=== PATIENT | female | born 2000 | race American Indian/Alaskan Native ===

== ENCOUNTER 2021-04-27 14:39 | Outpatient (CLI) | payer SELFPAY ==
[2021-04-27 16:01] VITALS: BP 105/63
[2021-04-27] MEDS ORDERED: LACTATED RINGERS 500 ML IV ONE (17:00)
[2021-04-27 17:03] LABS: Bacteria,Urine 1+ /HPF (Negative); Bilirubin,Urine NEG (Negative); Blood,Urine NEG (Negative); Color,Urine Yellow (Yellow); Mucus,Urine FEW /HPF; Protein,Urine <15 mg/dL mg/dL (Negative)
== END 2021-04-27 19:57 | disposition home or self-care (01) ==
LOC: TRG 14:39 → APU 15:52 → TRG 19:57
PROVIDERS: ATTEND Obstetrics & Gynecology
DX: O62.9 Abnormality of forces of labor, unspecified (principal); O26.893 Other specified pregnancy related conditions, third trimester; R10.9 Unspecified abdominal pain; R07.9 Chest pain, unspecified; Z3A.29 29 weeks gestation of pregnancy
CPT/HCPCS: 36415; 59025; 81001; 87086; 96360; 96361; J7120

== ENCOUNTER 2021-05-08 12:39 | Observation (INO) | payer MEDICAID ==
--- NOTE | 2021-05-08 13:40 | History and Physical Report ---
History of Present Illness Date of examination: 05/08/21 Date of admission: 05/08/21 Chief complaint: Dizziness x 1wk. History of present illness: at 34+5wks, no till 1 week ago, no intake of vitamins from historical info. labs from 1 week ago revealed Hb of 8.1. Patient returned for her scheduled visit this morning and reported nausea and dizziness and vomited on her way into the exam room. Patient is reserved with her narratives. Unclear if she has been having other issues including contractions. Past History Past Medical History: no pertinent history Past Surgical History: no surgical history - Obstetrical History Expected Date of Delivery: 06/14/21 Actual Gestation: 34 Week(s) 5 Day(s) : 3 Para: 0 Medications and Allergies Allergies Allergy/AdvReac Type Severity Reaction Status Date / Time No Known Allergies Allergy Unverified 04/27/21 15:58 Home Medications Medication Instructions Recorded Confirmed Last Taken Type Nitrofurantoin Haskell/M-Cryst 100 mg PO Q12HR 14 Days #7 capsule 04/27/21 Unknown Rx [Macrobid CAP] Review of Systems All systems: negative Constitutional: fatigue, weakness - Physical Exam Cardiovascular: Normal S1, Normal S2 Lungs: Positive: Normal air movement Abdomen: Positive: soft, distention Uterus: Positive: enlarged, normal contour Extremities: Positive: normal Deep Tendon Reflex Grade: Normal +2 - Obstetrical FHR: auscultation normal Results All other labs normal. Assessment and Plan - Patient Problems (1) Limited care in third trimester Current Visit: Yes Status: Acute (2) Anemia affecting in third trimester Current Visit: Yes Status: Acute Plan to address problem: Patient admitted into L&D for observation and management. [facility] review requested. (3) with 34 to 36 completed weeks gestation Current Visit: Yes Status: Acute (4) 34 weeks gestation of Current Visit: Yes Status: Acute
[2021-05-08] MEDS ORDERED: LACTATED RINGERS 1,000 ML ONE (14:16)
[2021-05-08] MEDS ORDERED: LACTATED RINGERS 500 ML IV ONE (16:03)
[2021-05-08 16:37] LABS: Hematocrit 25.8 % (30.3-42.9); Hemoglobin 7.8 gm/dl (10.1-14.3); Mean Corpuscular HGB Conc 30 % (30-34); Mean Corpuscular Volume 86 fl (79-97); Platelet Count 259 K/mm3 (140-440); Red Cell Distribution Width 14.4 % (13.2-15.2)
--- NOTE | 2021-05-08 17:28 | Ultrasound Report ---
ULTRASOUND OBSTETRIC LIMITED ULTRASOUND BIOPHYSICAL PROFILE INDICATION / CLINICAL INFORMATION: No PNC. Clinical Gestational Age (GA) in weeks, days: 34, 5 TECHNIQUE: Transabdominal. COMPARISON: None available. FINDINGS: BREATHING MOVEMENT = 2 GROSS BODY MOVEMENT = 2 TONE = 2 QUALITATIVE AMNIOTIC FLUID VOLUME = 2 TOTAL BIOPHYSICAL SCORE = 8/8 HEART RATE (beats per minute): 139 AMNIOTIC FLUID INDEX (cm) = 16.6 (normal = 7-24 cm) PRESENTATION: Cephalic. ADDITIONAL FINDINGS: There is a posterior grade 1 placenta. ANATOMY: organs (including the bladder, stomach, kidneys, heart, umbilical cord, diaphragm, cord inserti on, spine, and intracranial structures) are visualized and show no significant abnormality with the f ollowing exception(s): Cord insertion, choroid plexus and lateral ventricle. MEASUREMENTS: - Biparietal Diameter = 8.06 cm = 32, 3 weeks, days - Head Circumference = 29.36 cm = 32, 3 weeks, days - Abdominal Circumference = 28.49 cm = 32, 4 weeks, days - Femur Length = 6.29 cm = 32, 4 weeks, days - Estimated Weight (in grams, if calculated): 1986 Estimated gestational age by ultrasound 32 weeks 4 days. IMPRESSION: 1. Biophysical Score = 8/8 2. Single live intrauterine gestation with estimated gestational age by ultrasound of 32 weeks 4 days . heart tones noted at 139 bpm. Signer Name: Branden Koenig DO Signed: 05/08/2021 5:23 PM Workstation Name: [id number]
[2021-05-08 18:22] LABS: Alanine Aminotransferase 9 units/L (7-56); Albumin 3.4 g/dL (3.9-5); Blood Urea Nitrogen 8 mg/dL (7-17); Calcium 8.9 mg/dL (8.4-10.2); Hemolysis Index 4
[2021-05-08 18:23] LABS: BUN/Creatinine Ratio 16
[2021-05-08] MEDS ORDERED: SODIUM CHLORIDE 0.9% 500 ML 500 ML IV ONE (19:18)
[2021-05-08] MEDS ORDERED: ACETAMINOPHEN 325 MG TAB PO PRN (19:48)
--- NOTE | 2021-05-08 20:18 | Event Note ---
Date: 05/08/21 Spoke with [facility] specialist MD Michael about Ms. Noble and her probable anemia induced dizziness. Dr. Rodriguez recommended transfusion with 2 units of packed RBC and if stable and feeling better after this for patient to be seen at their office sedrick in continuation of her care.
[2021-05-09 05:32] LABS: Hematocrit 29.2 % (30.3-42.9); Hemoglobin 9.1 gm/dl (10.1-14.3)
[2021-05-09 06:21] LABS: Bilirubin,Urine NEG (Negative); Blood,Urine NEG (Negative); Color,Urine Yellow (Yellow); Mucus,Urine FEW /HPF; Protein,Urine <15 mg/dL mg/dL (Negative); Urobilinogen,Urine < 2.0 mg/dL (<2.0)
[2021-05-09 08:25] VITALS: BP 191/97
== END 2021-05-09 08:18 | disposition home or self-care (01) ==
LOC: TRG 12:39 → APU 12:41 → LD 19:48 → TRG 19:48
PROVIDERS: ADMIT Obstetrics & Gynecology; ATTEND Obstetrics & Gynecology
DX: O99.013 Anemia complicating pregnancy, third trimester (principal); D64.9 Anemia, unspecified; O26.893 Other specified pregnancy related conditions, third trimester; R11.0 Nausea; R42 Dizziness and giddiness; Z3A.35 35 weeks gestation of pregnancy; Z79.899 Other long term (current) drug therapy
CPT/HCPCS: 36415; 36430; 59025; 76805; 76819; 80053; 81001; 85014; 85018; 85027; 86850; 86900; 86901; 86920; 87086; 96360; G0378; J7120; P9016

== ENCOUNTER 2021-05-19 13:53 | Outpatient (CLI) | payer MEDICAID ==
[2021-05-19 14:24] VITALS: BP 113/68
[2021-05-19 15:13] LABS: Bacteria,Urine 1+ /HPF (Negative); Bilirubin,Urine NEG (Negative); Blood,Urine NEG (Negative); Color,Urine Yellow (Yellow); Mucus,Urine FEW /HPF; Protein,Urine <15 mg/dL mg/dL (Negative)
[2021-05-19] MEDS ORDERED: LACTATED RINGERS 1,000 ML IV ONE (15:30)
[2021-05-19 16:35] LABS: Amphetamine Screen,Urine PRESUMPTIVE NEGATIVE; Benzodiazepines Screen,Urine PRESUMPTIVE NEGATIVE; Cannabinoid Screen,Urine PRESUMPTIVE NEGATIVE; Cocaine Screen,Urine PRESUMPTIVE NEGATIVE; Methadone Screen,Urine PRESUMPTIVE NEGATIVE; Opiate Screen,Urine PRESUMPTIVE NEGATIVE
[2021-05-19 16:44] LABS: Hematocrit 32.4 % (30.3-42.9); Hemoglobin 10.3 gm/dl (10.1-14.3); Mean Corpuscular HGB Conc 32 % (30-34); Mean Corpuscular Volume 86 fl (79-97); Platelet Count 206 K/mm3 (140-440); Red Blood Count 3.76 M/mm3 (3.65-5.03)
== END 2021-05-19 18:10 | disposition home or self-care (01) ==
LOC: TRG 13:53 → APU 13:55 → TRG 18:10
PROVIDERS: ATTEND Obstetrics & Gynecology
DX: O26.893 Other specified pregnancy related conditions, third trimester (principal); R10.9 Unspecified abdominal pain; J02.9 Acute pharyngitis, unspecified; Z3A.36 36 weeks gestation of pregnancy
CPT/HCPCS: 36415; 59025; 80307; 81001; 85027

== ENCOUNTER 2021-06-11 20:45 | Inpatient (IN) | payer MEDICAID ==
[2021-06-11] MEDS ORDERED: miSOPROStol 200 MCG TAB PR PRN (23:32)
[2021-06-11] MEDS ORDERED: LIDOCAINE (2%) 20 MG/1 ML VIAL 20 ML MDV INFILTRATI ONE (23:32)
[2021-06-11] MEDS ORDERED: ACETAMINOPHEN 325 MG TAB PO PRN (23:32)
[2021-06-11] MEDS ORDERED: CARBOPROST TROMETHAMINE 250 MCG/1 ML INJ IM PRN (23:32)
[2021-06-11] MEDS ORDERED: BUTORPHANOL 2 MG/1 ML INJ IV PRN ×2 (23:32)
[2021-06-11] MEDS ORDERED: TERBUTALINE 1 MG/1 ML INJ SUB-Q PRN (23:32)
[2021-06-11] MEDS ORDERED: LOPERAMIDE 2 MG CAP PO PRN (23:32)
[2021-06-11] MEDS ORDERED: OXYTOCIN 10 UNIT/1 ML INJ IM PRN (23:32)
[2021-06-11] MEDS ORDERED: ePHEDrine SULFATE 50 MG/1 ML INJ IV PRN (23:32)
[2021-06-11] MEDS ORDERED: MINERAL OIL 30 ML ORAL LIQD PO PRN (23:32)
[2021-06-11] MEDS ORDERED: METHYLERGONOVINE MALEATE 0.2 MG/ML VIAL IM PRN (23:32)
[2021-06-11] MEDS ORDERED: OXYTOCIN DRIP 30 UNITS/500 ML BAG IV SCH (23:45)
[2021-06-11] MEDS: LACTATED RINGERS 1,000 ML IV SCH (23:55)
[2021-06-11] MEDS: OXYTOCIN DRIP 30 UNITS/500 ML BAG IV SCH (23:55)
[2021-06-12] LABS: Hematocrit 29.1 % (30.3-42.9); Hemoglobin 9.4 gm/dl (10.1-14.3); Mean Corpuscular HGB Conc 32 % (30-34); Mean Corpuscular Volume 85 fl (79-97); Platelet Count 231 K/mm3 (140-440); Red Blood Count 3.44 M/mm3 (3.65-5.03); Red Cell Distribution Width 16.2 % (13.2-15.2)
[2021-06-12] MEDS: OXYTOCIN DRIP 30 UNITS/500 ML BAG IV SCH ×6 (07:17→18:11)
[2021-06-12] MEDS: LACTATED RINGERS 1,000 ML IV SCH ×3 (08:01→18:15)
--- NOTE | 2021-06-12 11:47 | Anesthesia Consultation ---
Anesthesia Consult and Med Hx Date of service: 06/12/21 - Airway Anesthetic Teeth Evaluation: Good ROM Head & Neck: Adequate Mental/Hyoid Distance: Adequate Mallampati Class: Class II Intubation Access Assessment: Probably Good - Pre-Operative Health Status ASA Pre-Surgery Classification: ASA2 Proposed Anesthetic Plan: Epidural, Spinal - Pulmonary Hx Asthma: No COPD: No Hx Pneumonia: No - Cardiovascular System Hx Hypertension: No - Central Nervous System Hx Seizures: No Hx Psychiatric Problems: No - Endocrine Hx Renal Disease: No Hx End Stage Renal Disease: No Hx Hypothyroidism: No Hx Hyperthyroidism: No - Hematic Hx Anemia: Yes Hx Sickle Cell Disease: No - Other Systems Hx Alcohol Use: No
[2021-06-12] MEDS ORDERED: ePHEDrine SULFATE 50 MG/1 ML INJ IV PRN (11:48)
[2021-06-12] MEDS ORDERED: NALOXONE 2 MG/2 ML INJ IV PRN (11:48)
--- NOTE | 2021-06-12 11:48 | Progress Note ---
Labor Epidural - Labor Epidural Start Time: 11:28 Stop Time: 11:40 Performed by:: JEANA SHELTON Procedure: Combined spinal/epidural for labor Patient requesting epidural for labor pain. H&P, labs were reviewed. Patient IDed, procedure explained, all questions and concerns answered, and consent signed. Timeout performed immediately prior to procedure. Patient placed in sitting position. Sterile prep and drape in usual fashion. Skin anesthetized with 3ml of 1% lidocaine at L[2]- L [3] interspace. 17-gauge Touhy epidural needle advanced to ANTON with saline @ 6cm. Negative CSF, negative blood via Touhy needle. 25g spinal needle advanced through Touhy until clear, free flowing CSF noted. 10 mg of Precedex injected into intrathecal space then spinal needle removed. Epidural catheter advanced to [11] centimeters. [Negative] aspiration and [negative] response to 1% lidocaine w/ epi test dose. Clear, sterile dressing applied and reinforced with tape. Patient tolerated procedure well, no immediate complications noted. Pain improved after procedure.
[2021-06-12] MEDS ORDERED: fentaNYL-BUPIV 2 MCG/ML-0.125% 200 MCG/100 ML BAG EPIDURAL SCH (12:00)
--- NOTE | 2021-06-12 12:17 | History and Physical Report ---
History of Present Illness Date of examination: 06/12/21 Date of admission: 06/11/21 20:45 Chief complaint: Admitted for induction. History of present illness: . DILEEP 05/27/21. Anemia in . Late presentation for care. Past History Past Medical History: no pertinent history Past Surgical History: no surgical history Social history: other (non compliant) - Obstetrical History Expected Date of Delivery: 06/14/21 Actual Gestation: 39 Week(s) 5 Day(s) : 3 Para: 0 Medications and Allergies Allergies Allergy/AdvReac Type Severity Reaction Status Date / Time No Known Allergies Allergy Verified 05/19/21 14:28 Home Medications Medication Instructions Recorded Confirmed Last Taken Type Nitrofurantoin Bent/M-Cryst 100 mg PO Q12HR 14 Days #7 capsule 04/27/21 Unknown Rx [Macrobid CAP] Active Meds: Active Medications Acetaminophen (Acetaminophen 325 Mg Tab) 650 mg PO Q4H PRN PRN Reason: Pain, Mild (1-3) Butorphanol Tartrate (Butorphanol 2 Mg/1 Ml Inj) 1 mg IV Q2H PRN PRN Reason: Pain, Moderate(4-6) LABOR PAIN Butorphanol Tartrate (Butorphanol 2 Mg/1 Ml Inj) 2 mg IV Q2H PRN PRN Reason: Pain , Severe (7-10) Carboprost Tromethamine (Carboprost Tromethamine 250 Mcg/1 Ml Inj) 250 mcg IM ONCE PRN PRN Reason: Uterine Bleeding Ephedrine Sulfate (Ephedrine Sulfate 50 Mg/1 Ml Inj) 10 mg IV Q2M PRN PRN Reason: Hypotension Oxytocin/Sodium Chloride (Pitocin/Ns 30 Unit/500ml) 30 units in 500 mls @ 2 mls/hr IV TITR ETHAN; Protocol Last Admin: 06/12/21 10:19 Dose: 12 ml/hr, 12 mls/hr Lactated Ringer's (Lactated Ringers) 1,000 mls @ 125 mls/hr IV DIRECT ETHAN Last Admin: 06/12/21 12:06 Dose: 125 mls/hr Oxytocin/Sodium Chloride (Pitocin/Ns 30 Unit/500ml) 30 units in 500 mls @ 40 mls/hr IV TITR ETHAN; Protocol Fentanyl/Bupivacaine/Sodium Chlor (Fentanyl-Bupiv 2 Mcg/Ml-0.125%) 200 mcg in 100 mls @ 12 mls/hr EPIDURAL TITR ETHAN; Protocol Last Admin: 06/12/21 12:04 Dose: 12 mls/hr Loperamide HCl (Loperamide 2 Mg Cap) 2 mg PO ONCE PRN PRN Reason: give with Hemabate Methylergonovine Maleate (Methylergonovine Maleate 0.2 Mg/Ml Vial) 0.2 mg IM ONCE PRN PRN Reason: Uterine Bleeding Mineral Oil (Mineral Oil 30 Ml Oral Liqd) 30 ml PO QHS PRN PRN Reason: Constipation Misoprostol (Misoprostol 200 Mcg Tab) 800 mcg CA ONCE PRN PRN Reason: Uterine Bleeding Naloxone HCl (Naloxone 2 Mg/2 Ml Inj) 0.2 mg IV Q5M PRN PRN Reason: Respiratory sedation Oxytocin (Oxytocin 10 Unit/1 Ml Inj) 10 unit IM ONCE PRN PRN Reason: Uterine Bleeding Terbutaline Sulfate (Terbutaline 1 Mg/1 Ml Inj) 0.25 mg SUB-Q ONCE PRN PRN Reason: Hyperstimulation/Hypertonicity Review of Systems All systems: negative Genitourinary: contractions - Vital Signs Vital signs: Vital Signs Temp Pulse Resp BP Pulse Ox 98.1 F 97 H 18 112/72 96 06/11/21 22:56 06/11/21 22:56 06/11/21 22:56 06/11/21 22:56 06/11/21 22:56 Temp Pulse Resp BP Pulse Ox 97.9 F 77 16 102/56 95 06/12/21 07:10 06/12/21 12:11 06/12/21 07:10 06/12/21 12:11 06/12/21 12:07 - Physical Exam Breasts: Positive: deferred Cardiovascular: Normal S1, Normal S2 Lungs: Positive: Normal air movement Abdomen: Positive: normal appearance, soft, distention. Negative: tenderness Genitourinary (Female): Positive: normal external genitalia Vulva: both: normal Vagina: Positive: normal moisture Cervix: Negative: lesion, discharge Uterus: Positive: enlarged, normal contour. Negative: tender Anus/Rectum: Positive: normal perianal skin Extremities: Positive: normal Deep Tendon Reflex Grade: Normal +2 - Obstetrical FHR: category 1 Cervical Dilatation: 2 (ARM with clear fluid. IUPC PLACED.) Cervical Effacement Percentage: 90 station: 0-1 Uterine Contraction Pattern: Regular Results Result Diagrams: 06/11/21 23:32 Abnormal lab results 06/11/21 Range/Units 23:32 RBC 3.44 L (3.65-5.03) M/mm3 Hgb 9.4 L (10.1-14.3) gm/dl Hct 29.1 L (30.3-42.9) % MCH 27 L (28-32) pg RDW 16.2 H (13.2-15.2) % All other labs normal. Assessment and Plan - Patient Problems (1) with 39 completed weeks gestation Current Visit: Yes Status: Acute (2) Anemia affecting in third trimester Current Visit: No Status: Acute Plan to address problem: induction of labor in progress.
[2021-06-12] MEDS ORDERED: ACETAMINOPHEN 325 MG TAB PO PRN (20:13)
[2021-06-12] MEDS ORDERED: diphenhydrAMINE 25 MG CAP PO PRN (20:13)
[2021-06-12] MEDS ORDERED: PROMETHAZINE 25 MG TAB PO PRN (20:13)
[2021-06-12] MEDS ORDERED: MAGNESIUM HYDROXIDE (MOM) ORAL LIQD UDC PO PRN (20:13)
[2021-06-12] MEDS ORDERED: WITCH HAZEL/ GLYCERIN PAD TP PRN (20:13)
[2021-06-12] MEDS ORDERED: PROMETHAZINE 25 MG RECT SUPP PR PRN (20:13)
[2021-06-12] MEDS ORDERED: KETOROLAC 30 MG/1 ML INJ IV PRN (20:13)
[2021-06-12] MEDS ORDERED: LANOLIN/ZINC/DIMETHICONE (LANSINOH) 7 GM TP PRN (20:13)
[2021-06-12] MEDS ORDERED: ONDANSETRON 4 MG/2 ML INJ IV PRN (20:13)
--- NOTE | 2021-06-12 20:17 | Procedure Note ---
OB Delivery Note - Delivery Date of Delivery: 06/12/21 Surgeon: EMMY RONQUILLO Estimated blood loss: 200cc - Vaginal Delivery presentation: vertex Delivery position: OA Intrapartum events: none Delivery induction: oxytocin Delivery augmentation: rupture of membranes, pitocin Delivery monitor: external FHT, internal uterine Route of delivery: Delivery placenta: spontaneous, expressed Delivery cord: 3 umbilical vessels Episiotomy: none Delivery laceration: 1st degree, vaginal side wall, other (midline fourchette) Delivery repair: vicryl Anesthesia: epidural - Infant A at 1 minute: 8 at 5 minutes: 9 Infant Gender: Female
[2021-06-12] MEDS: IBUPROFEN 600 MG TAB PO SCH (23:00)
[2021-06-13] MEDS: IBUPROFEN 600 MG TAB PO SCH ×3 (05:24→17:43)
[2021-06-13] MEDS: HYDROcodone/ACETAMINOPHEN 5-325 MG TAB PO PRN (07:37)
[2021-06-13 07:59] LABS: Hematocrit 28.5 % (30.3-42.9); Hemoglobin 8.8 gm/dl (10.1-14.3)
--- NOTE | 2021-06-13 10:33 | Post Anesthesia Evaluation ---
- Post Anesthesia Evaluation Patient Participated: Yes Airway Patent: Yes Stable Respiratory Function: Yes Nausea/Vomiting: No Temp > 96.8F: Yes Pain Manageable: Yes Adequeate Hydration: Yes Anesthesia Complications: No Block Receding Appropriately: Yes Patient on Ventilator: No
[2021-06-13] MEDS ORDERED: BENZOCAINE/MENTHOL 20/0.5% TOP SPRAY 56 GM TP ONE (12:02)
[2021-06-13] MEDS: PRENATAL VIT27-FE FUMARATE-FOLIC ACID VIT TAB PO SCH (12:09)
--- NOTE | 2021-06-13 12:44 | Progress Note ---
Assessment and Plan - Patient Problems (1) with 39 completed weeks gestation Current Visit: Yes Status: Acute (2) Anemia affecting in third trimester Current Visit: No Status: Acute (3) Status post vaginal delivery Current Visit: Yes Status: Acute Plan to address problem: Happy and doing well. Vitamins re anemia discussed. Home if stable beyond 24 hrs possible. Subjective - Subjective Date of service: 06/13/21 Principal diagnosis: Staus post vagina delivery day1. Interval history: . DILEEP 05/27/21. Anemia in . Late presentation for care. Patient reports: appetite normal, voiding normally, pain well controlled, ambulating normally : doing well Objective - Vital Signs Latest vital signs: Vital Signs Temp Pulse Resp BP BP Pulse Ox Pulse Ox 06/13/21 08:00 06/13/21 07:55 97.9 F 76 20 101/63 98 06/13/21 06:06 97.9 F 77 18 107/69 100 06/13/21 00:54 97.9 F 100 H 18 121/69 100 06/12/21 22:01 98.2 F 94 H 18 122/72 98 06/12/21 22:00 06/12/21 21:01 106 H 123/78 06/12/21 20:58 106 H 77 L 06/12/21 20:53 88 99 06/12/21 20:48 89 98 06/12/21 20:43 96 H 97 06/12/21 20:38 91 H 98 06/12/21 20:33 103 H 99 06/12/21 20:32 101 H 120/87 06/12/21 20:29 107 H 93 06/12/21 20:28 98 H 98 06/12/21 20:23 131 H 97 06/12/21 20:21 98 06/12/21 20:18 116 H 97 06/12/21 20:14 104 H 86 06/12/21 20:13 104 H 98 06/12/21 20:08 120 H 100 06/12/21 20:07 118 H 88 06/12/21 20:03 96 H 98 06/12/21 20:02 96 H 119/75 06/12/21 20:01 97.8 F 06/12/21 19:58 107 H 98 06/12/21 19:52 104 H 98 06/12/21 19:48 106 H 100 18 19:47 89 85 1822 19:43 76 98 18 19:39 92 H 91 18 19:38 94 H 97 18 19:33 111 H 98 1822 19:32 84 125/67 06/12/21 19:31 107 H 82 L 18 19:28 93 H 99 18 19:23 91 H 100 18 19:18 90 100 18 19:13 111 H 100 06/12/21 19:08 84 97 06/12/21 19:03 82 100 06/12/21 19:02 81 98/64 06/12/21 19:00 98.0 F 06/12/21 18:58 88 96 06/12/21 18:53 76 92 06/12/21 18:50 83 94 06/12/21 18:48 76 97 06/12/21 18:43 77 100 06/12/21 18:38 84 100 06/12/21 18:33 87 94 06/12/21 18:28 71 96 06/12/21 18:23 96 H 93 06/12/21 18:22 82 84 06/12/21 18:18 91 H 95 06/12/21 18:12 86 97 06/12/21 18:11 79 97/55 93 06/12/21 18:08 79 96 06/12/21 18:03 86 98 1822 17:58 87 96 1822 17:53 84 98 1822 17:52 90 88 1822 17:48 89 99 1822 17:43 91 H 97 1822 17:38 84 92 1822 17:33 75 100 1822 17:28 81 98 1822 17:23 87 100 18 17:18 82 100 18 17:13 81 99 1822 17:08 89 100 06/12/21 17:03 82 98 1822 16:57 76 96 1822 16:53 77 98 1822 16:48 73 100 1822 16:43 75 98 01/18/22 16:38 83 100 06/12/21 16:37 82 88 06/12/21 16:33 77 93 06/12/21 16:29 71 92 06/12/21 16:28 70 99 06/12/21 16:23 71 82 L 06/12/21 16:18 80 94 06/12/21 16:17 74 97 06/12/21 16:12 77 100 06/12/21 16:11 70 116/67 06/12/21 16:09 67 92 06/12/21 16:07 73 100 06/12/21 16:02 75 100 06/12/21 15:57 69 100 06/12/21 15:52 63 99 06/12/21 15:47 66 99 06/12/21 15:42 75 100 06/12/21 15:37 77 100 06/12/21 15:32 79 100 06/12/21 15:27 73 100 06/12/21 15:22 70 100 06/12/21 15:17 78 99 06/12/21 15:12 72 98 06/12/21 15:07 74 98 06/12/21 15:02 72 100 06/12/21 14:57 71 100 06/12/21 14:52 77 100 06/12/21 14:47 73 99 06/12/21 14:42 80 100 06/12/21 14:37 93 H 98 06/12/21 14:32 75 100 06/12/21 14:27 99 H 97 06/12/21 14:22 80 100 06/12/21 14:17 83 99 06/12/21 14:12 101 H 100 06/12/21 14:11 95 H 107/62 06/12/21 14:07 78 95 06/12/21 14:02 77 96 06/12/21 13:57 87 98 06/12/21 13:52 74 98 06/12/21 13:47 82 98 06/12/21 13:42 91 H 99 06/12/21 13:37 90 99 06/12/21 13:32 79 98 06/12/21 13:27 82 99 06/12/21 13:22 78 99 06/12/21 13:17 91 H 100 06/12/21 13:13 80 91 06/12/21 13:12 84 97 06/12/21 13:07 76 98 06/12/21 13:02 97 H 97 06/12/21 12:57 85 97 06/12/21 12:52 74 99 06/12/21 12:47 82 96 06/12/21 12:42 73 98 Pulse Ox 06/13/21 08:00 99 06/13/21 07:55 06/13/21 06:06 06/13/21 00:54 06/12/21 22:01 06/12/21 22:00 99 06/12/21 21:01 06/12/21 20:58 06/12/21 20:53 06/12/21 20:48 06/12/21 20:43 06/12/21 20:38 06/12/21 20:33 06/12/21 20:32 06/12/21 20:29 06/12/21 20:28 06/12/21 20:23 06/12/21 20:21 98 06/12/21 20:18 06/12/21 20:14 06/12/21 20:13 06/12/21 20:08 06/12/21 20:07 06/12/21 20:03 06/12/21 20:02 06/12/21 20:01 06/12/21 19:58 06/12/21 19:52 06/12/21 19:48 06/12/21 19:47 06/12/21 19:43 06/12/21 19:39 06/12/21 19:38 06/12/21 19:33 06/12/21 19:32 06/12/21 19:31 06/12/21 19:28 06/12/21 19:23 06/12/21 19:18 06/12/21 19:13 06/12/21 19:08 06/12/21 19:03 06/12/21 19:02 06/12/21 19:00 06/12/21 18:58 06/12/21 18:53 06/12/21 18:50 06/12/21 18:48 06/12/21 18:43 06/12/21 18:38 06/12/21 18:33 06/12/21 18:28 06/12/21 18:23 06/12/21 18:22 06/12/21 18:18 06/12/21 18:12 06/12/21 18:11 06/12/21 18:08 06/12/21 18:03 06/12/21 17:58 06/12/21 17:53 06/12/21 17:52 06/12/21 17:48 06/12/21 17:43 06/12/21 17:38 06/12/21 17:33 06/12/21 17:28 06/12/21 17:23 06/12/21 17:18 06/12/21 17:13 06/12/21 17:08 06/12/21 17:03 06/12/21 16:57 06/12/21 16:53 06/12/21 16:48 06/12/21 16:43 06/12/21 16:38 06/12/21 16:37 06/12/21 16:33 06/12/21 16:29 06/12/21 16:28 06/12/21 16:23 06/12/21 16:18 06/12/21 16:17 06/12/21 16:12 06/12/21 16:11 06/12/21 16:09 06/12/21 16:07 06/12/21 16:02 06/12/21 15:57 06/12/21 15:52 06/12/21 15:47 06/12/21 15:42 06/12/21 15:37 06/12/21 15:32 06/12/21 15:27 06/12/21 15:22 06/12/21 15:17 06/12/21 15:12 06/12/21 15:07 06/12/21 15:02 06/12/21 14:57 06/12/21 14:52 06/12/21 14:47 06/12/21 14:42 06/12/21 14:37 06/12/21 14:32 06/12/21 14:27 06/12/21 14:22 06/12/21 14:17 06/12/21 14:12 06/12/21 14:11 06/12/21 14:07 06/12/21 14:02 06/12/21 13:57 06/12/21 13:52 06/12/21 13:47 06/12/21 13:42 06/12/21 13:37 06/12/21 13:32 06/12/21 13:27 06/12/21 13:22 06/12/21 13:17 06/12/21 13:13 06/12/21 13:12 06/12/21 13:07 06/12/21 13:02 06/12/21 12:57 06/12/21 12:52 06/12/21 12:47 06/12/21 12:42 Intake and Output 06/12/21 06/13/21 06/13/21 23:59 07:59 15:59 Intake Total 836.95 480 360 Output Total 2200 1400 600 Balance -1363.05 -920 -240 Intake: IV 836.95 Lactated Ringers 1,000 ml 768.75 @ 125 mls/hr IV DIRECT ETHAN Rx#:[id number] PITOCin/NS 30 UNIT/500ML 68.2 30 units In 500 ml @ 2 mls/hr IV TITR ETHAN Rx#: [id number] Oral 240 360 Intake, Free Water 240 Output: Urine 2200 1400 600 Void 2200 1400 600 Other: Total, Intake Amount 240 360 Total, Output Amount 900 600 600 # Voids Void 1 1 Estimated Blood Loss 200 - Exam Breasts: Present: deferred Lungs: Present: Normal air movement Abdomen: Present: normal appearance, soft. Absent: tenderness Uterus: Present: normal, firm Extremities: Present: normal Deep Tendon Reflex Grade: Normal +2 - Labs Labs: Abnormal lab results 06/13/21 Range/Units 07:16 Hgb 8.8 L (10.1-14.3) gm/dl Hct 28.5 L (30.3-42.9) %
--- NOTE | 2021-06-13 12:52 | Discharge Summary ---
Providers - Providers Date of Admission: 06/11/21 20:45 Date of discharge: 06/13/21 Attending physician: EMMY RONQUILLO MD Primary care physician: EMMY RONQUILLO MD Hospitalization Reason for admission: induction of labor, other (anemia) Delivery: Episiotomy: none Laceration: 1st degree, other (midline) Other procedures: none complications: none Discharge diagnosis: IUP at term delivered [place] baby: female Condition at discharge: Good Disposition: 01 HOME / SELF CARE / HOMELESS - Discharge Diagnoses (1) with 39 completed weeks gestation Status: Acute (2) Anemia affecting in third trimester Status: Chronic (3) Status post vaginal delivery Status: Acute Plan - Provider Discharge Summary Activity: routine, no sex for 6 weeks, no heavy lifting 4 weeks, no strenuous exercise Diet: routine Instructions: other (emphasise regular intake of prenal/multivitamins going forward.) Additional instructions: [] Smoking cessation referral if applicable(refer to patient education folder for contact #) [] Refer to [facility]'s [facility] Booklet Call your doctor immediately for: * Fever > 100.5 * Heavy vaginal bleeding ( >1 pad per hour) * Severe persistent headache * Shortness of breath * Reddened, hot, painful area to leg or breast * Drainage or odor from incision. * Keep incision clean and dry at all times and follow doctor's instructions regarding bathing/showering - Follow up plan Follow up: EMMY RONQUILLO MD [Primary Care Provider] - 7 Days
[2021-06-13] MEDS ORDERED: BENZOCAINE/MENTHOL 20/0.5% TOP SPRAY 56 GM TP PRN (14:48)
[2021-06-14] MEDS: IBUPROFEN 600 MG TAB PO SCH ×2 (00:34→16:06)
[2021-06-14 10:53] VITALS: BP 108/68
[2021-06-14] MEDS: HYDROcodone/ACETAMINOPHEN 5-325 MG TAB PO PRN (11:15)
[2021-06-14] MEDS: PRENATAL VIT27-FE FUMARATE-FOLIC ACID VIT TAB PO SCH (11:15)
--- NOTE | 2021-06-14 11:58 | Consultation ---
History of Present Illness - Reason for Consult Consult date: 06/14/21 Reason for consult: MHE - Chief Complaint Chief complaint: Admitted for induction. - History of Present Psychiatric Illness The patient was seen today. She is a 21y/o female who was admitted for childbirth. She patient is calm, cooperative, pleasant and polite. She is smiling. The child's father is at bedside. The patient gives me permission to speak in front of him. The patient says she used to suffer from depression. She says she was in foster care and in and out of homes. She says "I'm happy now. I have a baby." She says she was never on any medications or had any psych admits. The patient denies SI/HI or any previous attempt. She says she was seeing a counselor in the past for depression. She says "I'll see a therapist again, but not meds. I want to see how it goes." She denies illicit drug use, alcohol or nicotine. The patient says she lives with the child's father and her aunt. The patient thanks me at the end of the evaluation. REVIEW OF SYSTEMS Constitutional: Negative for weight loss ENT: Runny note Respiratory: Cough All other systems reviewed and are negative MENTAL STATUS EXAMINATION General Appearance and Behavior: Age appropriate, good hygiene, wearing appropriate clothes. calm, cooperative, polite and pleasant Cooperation: Cooperative Psychomotor Behavior: Psychomotor normal Mood: happy Affect and affective range: Congruent with stated mood Thought Process: Goal directed Thought Content: Reality oriented Speech: Normal tone and pace Suicidal Ideation: Denies Homicidal Ideation: Denies Hallucinations: Denies Delusions: Denies Impulse Control: Normal Insight and Judgment: Normal insight and fair judgment Memory: Normal Attention: Attentive Orientation: a/o x 3 Assessment (1) Mental Health Eval Current Visit: Yes Status: Acute Treatment Plan No meds at this time Medical: per primary Disposition: Do not recommend acute psychiatric inpatient treatment [facility] to give resources for counseling services Will sign off. Thanks Case staffed with Dr. Jon Medications and Allergies Allergies Allergy/AdvReac Type Severity Reaction Status Date / Time No Known Allergies Allergy Verified 06/13/21 02:13 Home Medications Medication Instructions Recorded Confirmed Last Taken Type Nitrofurantoin Sharp/M-Cryst 100 mg PO Q12HR 14 Days #7 capsule 04/27/21 06/13/2122 10:00 Rx [Macrobid CAP] Active Meds: Active Medications Acetaminophen (Acetaminophen 325 Mg Tab) 650 mg PO Q4H PRN PRN Reason: Pain MILD(1-3)/Fever >100.5/IVAN Last Admin: 06/14/21 01:11 Dose: 650 mg Hydrocodone Bitart/Acetaminophen (Hydrocodone/Acetaminophen 5-325 Mg Tab) 2 each PO Q6H PRN PRN Reason: Pain, Moderate (4-6) Last Admin: 06/13/21 07:37 Dose: 2 each Benzocaine/Menthol (Benzocaine/Menthol 20/0.5% Top [place] 56 Gm) 1 spray TP TID PRN PRN Reason: Episiotomy Pain Bisacodyl (Bisacodyl 10 Mg Rect Supp) 10 mg NE BID PRN PRN Reason: Constipation Diphenhydramine HCl (Diphenhydramine 25 Mg Cap) 25 mg PO Q6H PRN PRN Reason: Itching Ibuprofen (Ibuprofen 600 Mg Tab) 600 mg PO Q6H [facility] Last Admin: 06/14/21 00:34 Dose: Not Given Ketorolac Tromethamine (Ketorolac 30 Mg/1 Ml Inj) 30 mg IV Q6H PRN PRN Reason: Pain, Moderate (4-6) Stop: 06/17/21 20:12 Magnesium Hydroxide (Magnesium Hydroxide (Mom) Oral Liqd Udc) 30 ml PO HS PRN PRN Reason: Constipation Multi-Ingredient Ointment (Lanolin/Zinc/Dimethicone (Lansinoh) 7 Gm) 1 applic TP PRN PRN PRN Reason: Sore Nipples Multivitamins/Iron/Calcium ( Lst82-Dh Fumarate-Folic Acid Vit Tab) 1 each PO QDAY [facility] Last Admin: 06/13/21 12:09 Dose: 1 each Ondansetron HCl (Ondansetron 4 Mg/2 Ml Inj) 4 mg IV Q8H PRN PRN Reason: Nausea And Vomiting Promethazine HCl (Promethazine 25 Mg Rect Supp) 25 mg NE Q6H PRN PRN Reason: Nausea And Vomiting Promethazine HCl (Promethazine 25 Mg Tab) 25 mg PO Q6H PRN PRN Reason: Nausea And Vomiting Sodium Chloride (Sodium Chloride 0.9% 10 Ml Flush Syringe) 10 ml IV PRN ETHAN Witch Makenzie/Glycerin (Witch Makenzie/ Glycerin Pad) 1 each TP PRN PRN PRN Reason: Hemorrhoid/cleansing/soothing Last Admin: 06/13/21 12:05 Dose: 1 each Mental Status Exam - Vital signs Last Vital Signs Temp 98.3 F 06/14/21 08:26 Pulse 60 06/14/21 08:26 Resp 18 06/14/21 08:26 BP 108/68 06/14/21 08:26 Pulse Ox 98 06/14/21 08:26 Results Result Diagrams: 06/13/21 07:16 All other labs normal.
== END 2021-06-14 16:40 | disposition home or self-care (01) | DRG 775 ==
LOC: LD 20:45 → OB 06-12 21:23
PROVIDERS: ADMIT Obstetrics & Gynecology; ATTEND Obstetrics & Gynecology
PROC: 10E0XZZ Delivery of Products of Conception, External Approach (ICD-10-PCS; principal; 2021-06-12)
PROC: 0HQ9XZZ Repair Perineum Skin, External Approach (ICD-10-PCS; 2021-06-12)
PROC: 3E0R3BZ Introduction of Anesthetic Agent into Spinal Canal, Percutaneous Approach (ICD-10-PCS; 2021-06-12)
PROC: 00HU33Z Insertion of Infusion Device into Spinal Canal, Percutaneous Approach (ICD-10-PCS; 2021-06-12)
PROC: 10907ZC Drainage of Amniotic Fluid, Therapeutic from Products of Conception, Via Natural or Artificial Opening (ICD-10-PCS; 2021-06-12)
DX: O99.02 Anemia complicating childbirth (principal); Z3A.39 39 weeks gestation of pregnancy; Z20.822 Contact with and (suspected) exposure to COVID-19; O70.0 First degree perineal laceration during delivery; O99.344 Other mental disorders complicating childbirth; Z37.0 Single live birth
CPT/HCPCS: 36415; 85014; 85018; 85027; 86592; 86850; 86900; 86901; 99211; G0378; J3490; G0463; J2590; J7120; U0003

== ENCOUNTER 2021-06-18 12:44 | Emergency (ER) | payer MEDICAID ==
[2021-06-18 14:25] VITALS: BP 118/72
== END 2021-06-20 04:25 ==
LOC: ED 12:44
DX: O90.89 Other complications of the puerperium, not elsewhere classified (principal); R10.9 Unspecified abdominal pain; Z53.21 Procedure and treatment not carried out due to patient leaving prior to being seen by health care provider